=== PATIENT | male | born 1960 | race Caucasian/White ===

== ENCOUNTER 2024-03-06 12:54 | Inpatient (IN) | payer SELFPAY ==
[2024-03-06] VITALS (8 sets, daily range): BP systolic 143–176; BP diastolic 73–89; PULSE 76–93; RESP 16–20; TEMP 36–36.6; O2SAT 95–99; BMI 34.9; BMI 34.8
--- NOTE | 2024-03-06 13:11 | EKG12_ITS ---
Test Reason : SOB Blood Pressure : / mmHG Vent. Rate : 078 BPM Atrial Rate : 078 BPM P-R Int : 176 ms QRS Dur : 088 ms QT Int : 356 ms P-R-T Axes : 063 031 052 degrees QTc Int : 405 ms Normal sinus rhythm with sinus arrhythmia Possible Left atrial enlargement Borderline ECG Confirmed by ISABEL MONTANA, LEONOR ([id number]), editor school photograph NANO WATERMAN ([id number]) on 03/07/2024 9:57:29 AM Referred By: Confirmed By:LEONOR HALL MD
--- NOTE | 2024-03-06 13:15 | NURSING ---
NO OLD EKGS
--- NOTE | 2024-03-06 13:23 | ED.VIS.DYS ---
HPI History of Present Illness Chief Complaint: Shortness of Breath Informant: patient and family Onset/Context/Timing Onset: Month(s) Context: sudden Timing: Intermittent Quality: Positive for Dyspnea on exertion; Negative for Orthopnea or PND Current Severity: Gone Maximum Severity: Moderate Worsened by: Exertion Relieved by: Rest Associated Symptoms cough Chest Pain: Positive for Intermittent Narrative Narrative: 63-year-old male has no primary care physician. No single past medical history. Quit smoking 4 months ago. Patient describes a 2-month history of exertional dyspnea. When he starts walking he gets short of breath and has to stop and rest and then it improves. The other day he took use battery into the car shop and he said just carrying it in and out to his car he was completely out of breath. Denies specific chest pain he says that he has some intermittent sometimes on the left but he gets some throat tightness from time to time. He has no known cardiac history but is never had any workup. His father had heart disease. He denies leg pain or swelling. No hemoptysis. No fever. PE Risk Factors: Negative for Cancer, OCP + Smoking + > 35, Prior DVT or PE, Recent immobilization, Recent surgery or Recent travel Prior similar symptoms: Yes Recent Illness/Hospitalization: No PFSH PFSH Medical History no medical history no medical history Home Medications ?Medication ?Instructions ?Recorded ?Last Taken ?Type cetirizine 10 mg tablet (24Hour 10 mg PO DAILY PRN allergy symptoms 03/06/24 03/05/24 History Allergy) fluticasone propionate 50 1 spray intranasal DAILY PRN 03/06/24 03/05/24 History mcg/actuation nasal allergy symptoms spray,suspension (Allergy Relief (fluticasone)) Allergy/AdvReac Type Severity Reaction Status Date / Time No Known Allergies Allergy Verified 03/06/24 12:57 Surgical History no surgical history no surgical history Social History Smoking Status: Never smoker ROS ROS ED ROS Narrative Exertional dyspnea. Review of Systems ROS Unobtainable: Denies due to encephalopathy Constitutional Constitutional ED: Denies chills or fever(s) Eyes Eyes: Denies blurry vision ENT ENT ED: Denies ear pain or rhinorrhea Cardiovascular Cardiovascular: Reports chest pain; Denies palpitations or racing heartbeat Respiratory/Chest Respiratory/Chest: Reports dyspnea and dyspnea on exertion; Denies cough Gastrointestinal Gastrointestinal: Denies abdominal pain, constipation, diarrhea, melena, nausea or vomiting Genitourinary Genitourinary ED: Denies dysuria or hematuria Musculoskeletal Musculoskeletal: Denies arthralgias or back pain Integumentary Denies abscess or Abrasions Neurologic Neurologic: Denies headache(s) Psychiatric Psychiatric: Denies anxiety or depression Endocrine Endocrinology: Denies cold intolerance Hematologic/Lymphatic Hematologic/Lymphatic: Denies easy bleeding, easy bruising or lymphadenopathy EXAM Physical Exam Narrative Exam Narrative: 63-year-old male. Vital signs stable afebrile. Pulse ox 95% room air no signs hypoxia. H EENT exam unremarkable. Neck nontender no JVD. Lungs clear to auscultation bilaterally. Heart regular rate and rhythm rate about 90 no murmur. Chest wall and ribs nontender. Abdomen soft nontender. Moving all 4 extremities. 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 Normal dorsi plantarflexion. Calves are nontender without edema or cords. Neurologically is awake and alert with no focal motor deficits. Const Vital Signs: 03/06/24 12:54 03/06/24 12:55 03/06/24 13:13 Temperature 97.2 F L Temperature Source Temporal Pulse Rate 93 Respiratory Rate 16 Respiratory Effort Short of Breath Respiratory Depth Shallow Respiratory Pattern Normal Blood Pressure 176/84 H Blood Pressure Mean 114 Pulse Ox 95 Oxygen Delivery Method Room Air Room Air Room Air 03/06/24 13:54 03/06/24 14:00 Temperature 97.8 F Temperature Source Temporal Pulse Rate 80 76 Respiratory Rate 20 H 18 Respiratory Effort Respiratory Depth Respiratory Pattern Blood Pressure 156/74 H 147/83 H Blood Pressure Mean 101 104 Pulse Ox 96 96 Oxygen Delivery Method Room Air Positive well nourished and well developed; Negative for cachectic, contractures or unkempt General Appearance ED: well developed and NAD; Negative for unkempt, cachectic, contractures or pallor Nutritional Appearance: Negative for cachectic HEENT Reports moist mucous membranes atraumatic; Negative for trauma or tenderness Eyes PERRL and EOMs intact bilaterally General Eye ED: Negative for pale conjunctiva or scleral icterus Neck no lymphadenopathy, supple and no JVD General: Negative for tenderness Lymph Lymphatic: Negative for other Chest Wall Chest: Negative for other Resp normal respiratory effort and clear to auscultation bilaterally Effort and Inspection: Negative for pain with movement Auscultation: Negative for rales, rhonchi or wheezes Cardio regular rate, regular rhythm, S1 normal heart sound, S2 normal heart sound and no murmurs Rate: Negative for bradycardia or tachycardic Rhythm: Negative for abnormal rhythm GI non-tender, non-distended and no masses Inspection: Negative for other Auscultation: normoactive bowel sounds Palpation: soft; Negative for tender, guarding or rebound tenderness present Back/Spine no CVA tenderness and normal to inspection General Back: Negative for CVA tenderness or tenderness Extremity Negative for normal to inspection General Extremety ED: Negative for edema or tenderness General Extremity: Negative for edema Neuro oriented x3 and CN's II-XII intact bilaterally Sensorium / Orientation: alert, oriented to person, oriented to place and oriented to time; Negative for orientation impaired, confused, lethargic or stuporous Speech: speech normal Motor Exam: strength 5/5 throughout Psych mental status grossly normal Appearance: Negative for unkempt Attitude: No agitated Mood & Affect: Negative for depressed, anxious or tearful Thought Process: normal thought process Skin no wounds and skin turgor normal General Skin Exam: Negative for jaundice or pallor Lesions: no lesions Rashes: no rashes MDM MDM MDM Narrative Medical decision making narrative: 63-year-old male 2-month history of exertional dyspnea very concerning for coronary disease. Exam otherwise unremarkable. Cardiac workup and I have already discussed with patient and family admission for further cardiac testing. Repeat exam unchanged. Given the patient's history of exertional dyspnea I do have significant concern this may be cardiac. His troponins elevated at 138. I spoke at length both he and his family went over his test results. They are comfortable and he is willing to be admitted for further cardiac evaluation. I spoke to the hospitalist Dr. Villarreal and he will admit the patient to the PCU. History & Record Review Discussion w/independent historian: Patient and Family Additional record(s) reviewed:: No prior records Lab Data Attestation: I reviewed the patient's lab results. Lab results narrative: CBC normal. White count of 5. H&H 14 and 44. Platelets 218. Electrolytes unremarkable gap 4. Normal BUN and creatinine. Glucose 111. Troponin is elevated at 138. Labs: Laboratory Results - last 24 hr 03/06/24 13:08 WBC 5.8 RBC 4.55 L Hgb 14.5 Hct 44.8 MCV 98.5 H MCH 31.9 MCHC 32.4 RDW Std Deviation 44.9 H RDW Coeff of Uriah 12.4 Plt Count 218 MPV 9.4 Immature Gran % (Auto) 0.200 Neut % (Auto) 61.1 Lymph % (Auto) 24.8 Casey % (Auto) 9.7 Eos % (Auto) 3.3 Baso % (Auto) 0.9 Absolute Neuts (auto) 3.5 Absolute Lymphs (auto) 1.43 Nucleated RBC % 0 Sodium 137 Potassium 4.0 Chloride 107 Carbon Dioxide 26.0 Anion Gap 4 L BUN 12 Creatinine 0.84 Estim Creat Clear Calc 122.25 Est GFR (MDRD) Af Amer 118 Est GFR (MDRD) Non-Af 97 BUN/Creatinine Ratio 14.2 Glucose 111 H Calcium 8.9 Troponin I High Sens 138 H* Radiography Chest X-Ray - ED: 1 View, Read by ED Physician, Heart, Lungs, Mediastinum, Bony Structures, No Acute Disease and Chronic Changes Diagnostic Testing: Clinical Impression(s) from Imaging Studies Chest X-Ray 03/06/24 13:35 IMPRESSION: Findings suggest some mild scarring at the lung bases. Electronically Signed: Mathew Vasquez MD at 14:06 EDT , Chest x-ray portable, single view interpreted by myself and radiologist shows normal cardiac silhouette. Chronic changes on his lung kelley. History of smoker. Rhythm Strip Rhythm Strip: Sinus Rhythm Rate: 78 Ectopy: None EKG Initial EKG: Attestation: I personally reviewed and interpreted this EKG as follows: Interpretation: Sinus Rhythm and No Acute Injury Pattern Comments: Normal sinus rhythm rate of 78 no acute signs of PR or ischemia. No old EKG available. Prior EKG tracings: not available for review Prior: No Prior Discharge Plan Triage Chief Complaint: Shortness of Breath ED Provider: Antolin Gaffney Dx/Rx/DC Orders Clinical Impression: Exertional dyspnea, Elevated troponin Prescriptions: No Action fluticasone propionate [Allergy Relief (fluticasone)] 50 mcg/actuation spray,suspension 1 spray intranasal DAILY PRN (Reason: allergy symptoms) Rx Instructions: administer into each nostril cetirizine [24Hour Allergy] 10 mg tablet 10 mg PO DAILY PRN (Reason: allergy symptoms) Primary Care Provider: Care Physician,No Primary Referrals: Care Physician,No Primary [Primary Care Provider] - Print Language: Maori Disposition Disposition: Acute Care Hospital [facility]
[2024-03-06 13:28] LABS: Absolute Lymphocyte Count 1.43 X10^3/uL (0.83-4.51); Absolute Neutrophil Count 3.5 X10^3/uL (2.0-7.7); Basophil# 0.05 X10^3/uL; Basophil% 0.9 % (0-1); Eosinophil# 0.19 X10^3/uL; Eosinophils% 3.3 % (0-5); Hematocrit 44.8 % (40-54); Hemoglobin 14.5 g/dL (13.0-16.5); Lymphocyte # 1.43 X10^3/ul (0.83-4.51); Lymphocyte % 24.8 % (19-41); Mean Corp Hgb Conc 32.4 g/dL (32-36); Mean Corpuscular Hgb 31.9 pg (27.0-32.0); Mean Corpuscular Volume 98.5 fL (80-94); Mean Platelet Vol. 9.4 fl (6.2-12.0); Monocyte# 0.56 X10^3/uL; Monocyte% 9.7 % (0-10); NRBC Flagged by Analyzer 0 % (0-5); Neutrophil # 3.52 X10^3/uL (2.7-7.7); Neutrophil % 61.1 % (47-70); Platelet Count 218 K/mm3 (150-450); RBC Distribution Width CV 12.4 % (11.6-14.6); RBC Distribution Width SD 44.9 fl (35.1-43.9); Red Blood Count 4.55 M/mm3 (4.6-6.2); White Blood Count 5.8 K/mm3 (4.4-11.0)
--- NOTE | 2024-03-06 13:35 | RAD_ITS ---
STUDY: X-RAY CHEST REASON FOR EXAM: Male, 63 years old. Chest pain and shortness of breath. TECHNIQUE: PA and lateral views of the chest. COMPARISON: None. FINDINGS: EKG electrodes are seen. Elevation of the right hemidiaphragm. Mild degree of increased linear markings at the lung bases suggests mild linear scarring. There is no demonstrated pleural abnormality. Normal size heart. Normal mediastinum and arnaud. Normal visualized pulmonary arteries. Normal visualized aortic arch and descending thoracic aorta. Normal visualized thoracic spine. Normal visualized ribs, clavicles, and shoulders. There is no demonstrated abnormality of the visualized soft tissue structures of the upper abdomen. RAD/Chest PA and Lateral IMPRESSION: Findings suggest some mild scarring at the lung bases. Electronically Signed: Mathew Vasquez MD at 14:06 EDT ,
[2024-03-06 14:27] LABS: Anion Gap 4 (5-15); BUN 12 mg/dL (7-18); BUN/Creat Ratio 14.2 RATIO (10-20); Calcium,Total 8.9 mg/dL (8.5-10.1); Chloride 107 mmol/L (98-107); Creatinine, Serum 0.84 mg/dL (0.70-1.30); EST Glomerular Filtration Rate 97 mL/min (>60); Est Glom Filt Rate - Afr Amer 118 mL/min (>60); Estimated Creatinine Clearance 122.25 ml/min; Glucose 111 mg/dL (74-106); Sodium Level 137 mmol/L (136-145); Troponin-I HS 138 pg/mL (3.0-78.0)
--- NOTE | 2024-03-06 15:00 | NURSING ---
PCU MATT EXERTIONAL DYSPNEA, ELEVATED TROP
--- NOTE | 2024-03-06 15:18 | ECHOD_ITS ---
Reason For Study: NSTEMI Procedure This was a 2D Doppler, Color Flow transthoracic echocardiogram. The study was technically difficult. Exam performed portable in patient room. Left Ventricle Normal LV size. The estimated ejection fraction is 55 %. No evidence for diastolic dysfunction. No regional wall motion abnormalities noted. Right Ventricle Normal RV size. Normal systolic function. Atria The left and right atria are normal. No doppler evidence for ASD. Mitral Valve There is no mitral valve stenosis. Trivial mitral valve insufficiency. Tricuspid Valve There is no tricuspid stenosis. Unable to estimate RV systolic pressure due to inadequate jet, pulmonary artery pressure probably normal. Aortic Valve Aortic sclerosis, no stenosis. There is no aortic stenosis. Trivial aortic valve insufficiency. Pulmonic Valve There is no pulmonic valvular stenosis. No pulmonic valve insufficiency. Great Vessels Normal aortic root. Pericardium/Pleural No pericardial effusion. MMode/2D Measurements & Calculations LVIDd: 5.0 cm IVSd: 1.6 cm LVOT diam: 2.1 cm LVIDs: 2.7 cm LVPWd: 1.1 cm LVOT area: 3.4 cm2 RVDd: 3.7 cm FS: 45.6 % Ao root diam: 3.5 cm LAV(MOD-bp): 58.8 ml LVAd ap4: 34.5 cm2 LAV(MOD-bp) Indexed: 24.3 ml/m2 LVLd ap4: 8.8 cm LAV(MOD-sp2): 73.7 ml EDV(MOD-sp4): 110.9 ml LAV(MOD-sp4): 46.6 ml EDV(sp4-el): 115.1 ml LVAs ap4: 18.8 cm2 LVLs ap4: 7.5 cm ESV(MOD-sp4): 40.0 ml ESV(sp4-el): 39.9 ml EF(MOD-sp4): 64.0 % EF(sp4-el): 65.3 % LVAd ap2: 36.7 cm2 SV(MOD-sp4): 70.9 ml SV(MOD-sp2): 77.2 ml LVLd ap2: 9.0 cm EDV(MOD-sp2): 125.5 ml EDV(sp2-el): 126.7 ml LVAs ap2: 20.8 cm2 LVLs ap2: 7.7 cm ESV(MOD-sp2): 48.3 ml ESV(sp2-el): 47.8 ml EF(MOD-sp2): 61.5 % SV(sp4-el): 75.2 ml LA dimension(2D): 3.7 cm LA A4 area: 17.5 cm2 RA A4 area: 10.7 cm2 TAPSE: 2.3 cm Time Measurements MV dec time: 0.21 sec Doppler Measurements & Calculations MV E max silver: 72.7 cm/sec Lat Peak E' Silver: 14.5 cm/sec Med Peak E' Silver: 9.2 cm/sec MV A max silver: 62.3 cm/sec E/E' lat: 5.0 E/E' med: 7.9 MV E/A: 1.2 Ao V2 max: 166.6 cm/sec AI max silver: 449.2 cm/sec MV dec slope: 349.4 cm/sec2 Ao max P.1 mmHg AI max P.7 mmHg Ao V2 mean: 114.9 cm/sec Ao mean P.8 mmHg AI dec slope: 311.9 cm/sec2 Ao V2 VTI: 33.8 cm AI P1/2t: 421.7 msec AV (velocity ratio): 0.71 GARCIA(I,D): 2.4 cm2 GARCIA(V,D): 2.2 cm2 LV V1 max: 104.4 cm/sec SV(LVOT): 82.3 ml PA V2 max: 71.1 cm/sec LV V1 max P.4 mmHg PA max PG (full): 0.21 mmHg LV V1 mean P.3 mmHg LV V1 mean: 71.5 cm/sec LV V1 VTI: 23.9 cm ECHO/Echo Complete Interpretation Summary The estimated ejection fraction is 55 %. No evidence for diastolic dysfunction. Trivial mitral valve insufficiency. Trivial aortic valve insufficiency. Ordering Physician: Rudolph Villarreal Referring Physician: N/A Performed By: Lubna Brice RDCS and Student
--- NOTE | 2024-03-06 15:20 | EKG12_ITS ---
Test Reason : Blood Pressure : / mmHG Vent. Rate : 072 BPM Atrial Rate : 072 BPM P-R Int : 174 ms QRS Dur : 090 ms QT Int : 376 ms P-R-T Axes : 044 031 053 degrees QTc Int : 411 ms Normal sinus rhythm Normal ECG When compared with ECG of 06-MAR-2024 13:28, No significant change was found Confirmed by Ryan Diego ([id number]), supervising film or videotape editor EVIN BALBUENA ([id number]) on 03/12/2024 6:13:52 AM Referred By: MATT Confirmed By:Ryan Diego
--- NOTE | 2024-03-06 15:26 | HP.PCM.HOS_ITS ---
HPI - General General Date of Admission: 03/06/24 Date of Service: 03/06/24 Chief Complaint: Exertional dyspnea for about 10 days HPI Narrative MIRI ROMERO, is a 63 M who has not seen any doctor for 30 years came to ER for exertional dyspnea which she noticed about 10 days ago. Patient stated that he was carrying car battery into the car shop and he felt very short of breath. Normally does not feel short of breath on walking on playground but while carrying weight he gets easily winded and out of breath. This has been going for about 2 months. Patient also has had sometimes he feel mild chest pressure about 1-3/10 intensity left-sided, localized but is not concerned it is not related with the activity. He also has chronic throat tightness which is chronic and intermittent. On home medications patient is on cetirizine and fluticasone nasal spray as needed for allergy symptoms. Patient does not know any his past medical history has not seen doctor for many years. His blood pressure was elevated in ED 176/84, heart rate 93/min. No hypoxia or tachypnea. Patient has history of smoking for about 18 years which she quit 4 months ago. He was smoking 1 pack in 1 week. Drinks alcohol regularly about 3-4 beers every day. Denies substance use. Family history: His father has history of coronary artery disease and at the age of 53 because of heart attack. He said he also had metallic valve probably prosthetic mechanical valve. First troponin elevated. Twelve-lead EKG, chest x-ray and labs reviewed and discussed assessment and plan. [facility] Medical History no medical history Home Medications ?Medication ?Instructions ?Recorded ?Last Taken ?Type cetirizine 10 mg tablet (24Hour 10 mg PO DAILY PRN allergy symptoms 03/06/24 03/05/24 History Allergy) fluticasone propionate 50 1 spray intranasal DAILY PRN 03/06/24 03/05/24 History mcg/actuation nasal allergy symptoms spray,suspension (Allergy Relief (fluticasone)) Allergy/AdvReac Type Severity Reaction Status Date / Time No Known Allergies Allergy Verified 03/06/24 12:57 Surgical History no surgical history Social History Smoking Status: Former smoker ROS ROS Narrative Constitutional: Reports fatigue and weakness. No fever. HEENT: Reports systems reviewed and no addt'l complaints, except as documented Respiratory/Chest: As described in HPI. Might have some allergic symptoms/rhinitis CVS: As described in HPI Gastrointestinal: Denies coffee ground emesis, hematemesis or vomiting. No abdominal pain Genitourinary: Denies burning urination or new urinary tract symptoms Musculoskeletal: No leg swelling denies acute joint pain or limited range of motion. No acute injury Neurologic: Denies seizure-like symptoms. skin: No ulcer. No rash Endocrinology: Reports systems reviewed and no addt'l complaints, except as documented Hematologic/Lymphatic: Reports systems reviewed and no addt'l complaints, except as documented Rest 14 ROS are negative except as mentioned in HPI Vital Signs Vital Signs Vital Signs: 03/06/24 12:54 03/06/24 12:55 03/06/24 13:13 Temperature 97.2 F L Temperature Source Temporal Pulse Rate 93 Respiratory Rate 16 Respiratory Effort Short of Breath Respiratory Depth Shallow Respiratory Pattern Normal Blood Pressure 176/84 H Blood Pressure Mean 114 Pulse Ox 95 Oxygen Delivery Method Room Air Room Air Room Air 03/06/24 13:54 03/06/24 14:00 03/06/24 14:57 Temperature 97.8 F 97.8 F Temperature Source Temporal Pulse Rate 80 76 85 Respiratory Rate 20 H 18 16 Respiratory Effort Respiratory Depth Respiratory Pattern Blood Pressure 156/74 H 147/83 H 143/89 H Blood Pressure Mean 101 104 107 Pulse Ox 96 96 95 Oxygen Delivery Method Room Air Weight Weight: 265 lb Body Mass Index (BMI) 34.9 Physical Exam Narrative General: Alert, Oriented x3, Cooperative. Obesity grade 3. BMI 35.0 kg/m? HEENT: Atraumatic, PERRLA, EOMI, Normocephalic Oral: Oral mucosa moist no Gingival or Mucosal Lesions/ Ulcerations Neck: Supple, No JVD, Negative Carotid Bruits Chest wall/Lungs: Air entry diminished in bilateral lung bases. No crepitation/rhonchi Cardiovascular: Regular rate, Regular Rhythm, Normal S1, Normal S2, soft systolic murmur LLSB Abdomen: Bowel Sounds Present, Soft, Non Tender, Non-Distended : No dysuria. No renal angle tenderness. No suprapubic tenderness. Extremities: No edema, Capillary Refill Less than 3 Seconds Skin: No rashes, No breakdown Musculoskeletal: No Tenderness to Palpation of Joints or Extremities Neurological: Cranial nerves II-XII grossly intact, DTR 2+/4. No acute focal neurological deficit. Psych/Mental Status: Normal Affect, Appropriate. Results Lab / Micro Data 03/06/24 13:08 03/06/24 13:08 Labs: Laboratory Results - last 24 hr 03/06/24 13:08: WBC 5.8, RBC 4.55 L, Hgb 14.5, Hct 44.8, MCV 98.5 H, MCH 31.9, MCHC 32.4, RDW Std Deviation 44.9 H, RDW Coeff of Uriah 12.4, Plt Count 218, MPV 9.4, Immature Gran % (Auto) 0.200, Neut % (Auto) 61.1, Lymph % (Auto) 24.8, Perkins % (Auto) 9.7, Eos % (Auto) 3.3, Baso % (Auto) 0.9, Absolute Neuts (auto) 3.5, Absolute Lymphs (auto) 1.43, Nucleated RBC % 0, Sodium 137, Potassium 4.0, Chloride 107, Carbon Dioxide 26.0, Anion Gap 4 L, BUN 12, Creatinine 0.84, Estim Creat Clear Calc 122.25, Est GFR (MDRD) Af Amer 118, Est GFR (MDRD) Non-Af 97, BUN/Creatinine Ratio 14.2, Glucose 111 H, Calcium 8.9, Troponin I High Sens 138 H* Rhythm Strip Rhythm Strip: Sinus Rhythm Rate: 78 Ectopy: None Imaging Radiology Impression Chest X-Ray 03/06/24 13:35 IMPRESSION: Findings suggest some mild scarring at the lung bases. Electronically Signed: Mathew Vasquez MD at 14:06 EDT , Assessment & Plan Assessment/Plan (1) NSTEMI, initial episode of care: PLAN: Plan This is 63-year-old gentleman came to ER for exertional dyspnea and clinical finding suggestive of non-STEMI 1. Exertional dyspnea most likely due to non-STEMI: Patient is being admitted in PCU. Twelve-lead EKG individually reviewed and shows normal sinus rhythm, sinus arrhythmia at 78 bpm, QTc [address]-T changes. No prior EKG to compare. Chest x-ray initially reviewed and shows mild atelectasis at lung bases but no acute findings. First troponin 138. Heart score 6. GIOVANNY risk score 3. Cycle cardiac enzymes and EKG as per ACS protocol. Aspirin 324 mg 1 dose ordered and then 81 mg from tomorrow AM. Enoxaparin 1 mg/kg body weight every 12 hourly, first dose now. Hold the morning dose prior to heart cath. Cardiology consulted and plan for cardiac cath tomorrow AM. Started on metoprolol succinate and lisinopril. Fasting profile and TSH tomorrow AM. 2D echo ordered for tomorrow AM 2. High blood pressure possible undiagnosed hypertension: Started on metoprolol and lisinopril as mentioned above. 3. Hypoglycemia, glucose 111 on BMP: Suspicion of prediabetes. A1c ordered for tomorrow 4. Morbid obesity: BMI 35.0 kg/m?. DVT prophylaxis: On therapeutic dose of Lovenox. Living will/advanced directive/end of life care: Patient does not have living will or advanced directive. He does not have designated power of trust and estates attorney for healthcare. He is accompanied by his son and daughter in ED. After discussion of benefits/risks procedures involved with full code, DNR CC arrest and DNR CC, the patient and his family opted for full code. Patient does want artificial life support including intubation, tube feed, ventilator and/chest compression, central venous catheter, vasopressor and DC shock if needed Total time spent in [id number] encounter in discussion of advanced directive 17 minutes. Laboratory Results 03/06/24 13:08: WBC 5.8, RBC 4.55 L, Hgb 14.5, Hct 44.8, MCV 98.5 H, MCH 31.9, MCHC 32.4, RDW Std Deviation 44.9 H, RDW Coeff of Uriah 12.4, Plt Count 218, MPV 9.4, Immature Gran % (Auto) 0.200, Neut % (Auto) 61.1, Lymph % (Auto) 24.8, Perkins % (Auto) 9.7, Eos % (Auto) 3.3, Baso % (Auto) 0.9, Absolute Neuts (auto) 3.5, Absolute Lymphs (auto) 1.43, Nucleated RBC % 0, Sodium 137, Potassium 4.0, Chloride 107, Carbon Dioxide 26.0, Anion Gap 4 L, BUN 12, Creatinine 0.84, Estim Creat Clear Calc 122.25, Est GFR (MDRD) Af Amer 118, Est GFR (MDRD) Non-Af 97, BUN/Creatinine Ratio 14.2, Glucose 111 H, Calcium 8.9, Troponin I High Sens 138 H* Clinical Impression(s) from Imaging Studies Chest X-Ray 03/06/24 13:35 IMPRESSION: Findings suggest some mild scarring at the lung bases. Electronically Signed: Mathew Vasquez MD at 14:06 EDT , Charges/Coding Visit Charges Inpatient E&M: 56466 Init Hosp L3 Procedures Hospitalists Procedures: 95263 Advncd Care Plan 30 Min
[2024-03-06] MEDS: Metoprolol(XL)Succ 25 MG Tablet PO (16:14)
[2024-03-06] MEDS: Aspirin 81 MG TAB.CHEW 324 MG PO (16:14)
[2024-03-06] MEDS: 0.9% Normal Saline (1000mL) 1,000 ML 75 ML IV (16:14)
[2024-03-06] MEDS: Enoxaparin 120 MG/0.8 ML Syringe SC (16:14)
[2024-03-06] MEDS: Lisinopril 5 MG Tablet PO (16:14)
[2024-03-06] MEDS: 0.9% Saline Lock 10 ML Syringe IV (16:16)
[2024-03-06 17:03] LABS: AST(SGOT) 24 U/L (15-37); Alanine Aminotransfer ALT/SGPT 26 U/L (16-61); Albumin, Serum 3.5 g/dL (3.2-5.0); Alkaline Phosphatase 71 U/L (45-117); Bilirubin, Direct 0.23 mg/dL (0.00-0.30); Globulin 4.1 g/dL (2.2-4.2); Magnesium 2.2 mg/dL (1.6-2.6); Protein, Total 7.6 g/dL (6.4-8.2); Troponin-I HS 136 pg/mL (3.0-78.0)
--- NOTE | 2024-03-06 17:42 | CON.PCM.CA_ITS ---
Assessment & Plan Assessment/Plan (1) NSTEMI, initial episode of care: PLAN: He does have evidence of abnormal cardiac enzymes. However the pattern does not suggest acute coronary syndrome. It is possible that this is an anginal equivalent. Based on his response and access to the healthcare system it may be prudent to proceed with definitive evaluation to exclude obstructive coronary disease and depending on the findings further recommendations will be made. I have explained the above to him he understands and agrees to proceed with a left heart catheterization in a.m. Further recommendations will depend on the results of the above. (2) Exertional dyspnea: PLAN: He does have evidence of exertional dyspnea. As noted above this could be an anginal equivalent. We would obtain an echocardiogram to assess his ventricular function. I will also like to obtain a natruretic peptide level. Further recommendations will depend on the results of the above results. HPI Consult Data Date of Consult: 03/06/24 HPI Narrative HPI Narrative: MIRI ROMERO, is a 63 M who presents to the emergency room with shortness of breath with minimal exertion. He says that he has not visited a primary care physician in over 30 years but he felt that he was getting more short of breath. He denied any dizziness or diaphoresis near syncope or syncope he denied any chest pains per se. In the emergency room he was evaluated his EKG demonstrated sinus rhythm with no acute changes cardiac enzymes were obtained which were noted to be abnormal he was admitted to the progressive care unit for further evaluation and management. Currently he seems to be doing well. [facility] Medical History no medical history Home Medications ?Medication ?Instructions ?Recorded ?Last Taken ?Type cetirizine 10 mg tablet (24Hour 10 mg PO DAILY PRN allergy symptoms 03/06/24 03/05/24 History Allergy) fluticasone propionate 50 1 spray intranasal DAILY PRN 03/06/24 03/05/24 History mcg/actuation nasal allergy symptoms spray,suspension (Allergy Relief (fluticasone)) Allergy/AdvReac Type Severity Reaction Status Date / Time No Known Allergies Allergy Verified 03/06/24 12:57 Surgical History no surgical history Social History Smoking Status: Former smoker ROS Constitutional Constitutional: Denies fever(s) or weight loss Eyes Eyes: Reports systems reviewed and no addt'l complaints, except as documented ENT HEENT: Reports systems reviewed and no addt'l complaints, except as documented Cardiovascular Cardiovascular: Denies chest pain at rest, chest pain with activity, dyspnea at rest, dyspnea on exertion, edema, palpitations or paroxysmal nocturnal dyspnea Respiratory/Chest Respiratory/Chest: Reports dyspnea on exertion, shortness of breath at rest and shortness of breath with exertion; Denies productive cough Gastrointestinal Gastrointestinal: Denies change in bowel habits, nausea, vomiting or weight changes Genitourinary Genitourinary: Denies difficulty urinating Musculoskeletal Musculoskeletal: Denies joint stiffness or muscle weakness Integumentary Integumentary: Denies lesions Neurologic Neurologic: Denies dizziness or syncope Psychiatric Psychiatric: Denies anxiety Endocrine Endocrinology: Denies excessive sweating or fatigue Hematologic/Lymphatic Hematologic/Lymphatic: Denies anemia Allergic/Immunologic Allergic/Immunologic: Denies seasonal rhinorrhea Physical Exam Const alert, oriented x3 and no apparent distress General Appearance: cooperative HEENT hearing grossly normal bilaterally Head and Scalp: atraumatic Eyes EOMs intact bilaterally Neck General: normal visual inspection Chest inspection of chest normal and palpation of chest normal Resp normal respiratory effort Auscultation: clear to auscultation bilaterally Cardio regular rate, regular rhythm, S1 normal heart sound and S2 normal heart sound Jugular Venous Distention: JVD GI normal to inspection, nondistended, normoactive bowel sounds Extremity normal capillary refill and no pedal edema Peripheral Pulses: Yes pulses 2+ throughout and femoral pulses present Skin no rashes or lesions noted Neuro oriented x3 and CN's II-XII intact bilaterally Psych Appearance: grossly normal and appropriate Risk Stratification Risk Stratification Applicable: Yes Age >/= 65: No >/= 3 CAD Risk Factors (HTN, HLD, DM, family hx of CAD, or current smoker): No Aspirin Use in the Past 7 Days: No Severe Angina (>/= episodes in 24 hours): No EKG ST Changes >/= 0.5mm: No Positive Cardiac Marker: Yes GIOVANNY Risk Stratification Score: 1 GIOVANNY % Risk: 5% Risk Objective Data Vital Signs: Vital Signs Temp Pulse Resp BP Pulse Ox O2 Del Method 97.7 F L 76 18 159/76 H 99 Room Air 03/06/24 15:40 03/06/24 16:14 03/06/24 15:40 03/06/24 15:40 03/06/24 15:40 03/06/24 15:50 Oxygen Delivery Method Room Air Weight: 264 lb 1.82 oz Body Mass Index (BMI) 34.8 Lab / Micro Data 03/06/24 13:08 03/06/24 13:08 Labs: Laboratory Results - last 24 hr 03/06/24 13:08: WBC 5.8, RBC 4.55 L, Hgb 14.5, Hct 44.8, MCV 98.5 H, MCH 31.9, MCHC 32.4, RDW Std Deviation 44.9 H, RDW Coeff of Uriah 12.4, Plt Count 218, MPV 9.4, Immature Gran % (Auto) 0.200, Neut % (Auto) 61.1, Lymph % (Auto) 24.8, [place] % (Auto) 9.7, Eos % (Auto) 3.3, Baso % (Auto) 0.9, Absolute Neuts (auto) 3.5, Absolute Lymphs (auto) 1.43, Nucleated RBC % 0, Sodium 137, Potassium 4.0, Chloride 107, Carbon Dioxide 26.0, Anion Gap 4 L, BUN 12, Creatinine 0.84, Estim Creat Clear Calc 122.25, Est GFR (MDRD) Af Amer 118, Est GFR (MDRD) Non-Af 97, BUN/Creatinine Ratio 14.2, Glucose 111 H, Calcium 8.9, Troponin I High Sens 138 H* 03/06/24 15:49: Magnesium 2.2, Total Bilirubin 0.90, Direct Bilirubin 0.23, AST 24, ALT 26, Alkaline Phosphatase 71, Troponin I High Sens 136 H*, Total Protein 7.6, Albumin 3.5, Globulin 4.1 Rhythm Strip Rhythm Strip: Sinus Rhythm Rate: 78 Ectopy: None Cardiology Labs/Tests 03/06/24 13:08: WBC 5.8, RBC 4.55 L, Hgb 14.5, Hct 44.8, MCV 98.5 H, MCH 31.9, MCHC 32.4, Plt Count 218, MPV 9.4, Immature Gran % (Auto) 0.200, Neut % (Auto) 61.1, Lymph % (Auto) 24.8, [place] % (Auto) 9.7, Eos % (Auto) 3.3, Baso % (Auto) 0.9, Absolute Neuts (auto) 3.5, Nucleated RBC % 0, Sodium 137, Potassium 4.0, Chloride 107, Carbon Dioxide 26.0, Anion Gap 4 L, BUN 12, Creatinine 0.84, Est GFR (MDRD) Af Amer 118, Est GFR (MDRD) Non-Af 97, BUN/Creatinine Ratio 14.2, G lucose 111 H, Calcium 8.9 03/06/24 15:49: Magnesium 2.2, Total Bilirubin 0.90, Direct Bilirubin 0.23 Rhythm: EKG: ECHO: Stress Test: Cardiac Cath: PCI: CT Surgery: Holter monitor: EPS: PPM: CXR: Chest CT Scan: Radiography Diagnostic Testing: Radiology Impression Chest X-Ray 03/06/24 13:35 IMPRESSION: Findings suggest some mild scarring at the lung bases. Electronically Signed: Mathew Vasquez MD at 14:06 EDT ,
[2024-03-06 20:30] LABS: Troponin-I HS 128 pg/mL (3.0-78.0)
[2024-03-06] MEDS: Atorvastatin Calcium 40 MG Tablet PO (21:33)
--- NOTE | 2024-03-06 22:30 | CT_ITS ---
EXAM: CT ABDOMEN AND PELVIS WITHOUT INTRAVENOUS CONTRAST CLINICAL INDICATION: scrotal mass x 5 years TECHNIQUE: Helically acquired images were obtained of the abdomen and pelvis without intravenous contrast. This CT exam was performed using one or more of the following dose reduction techniques: automated exposure control, adjustment of the mA and/or kV according to patient size, and/or use of iterative reconstruction technique. COMPARISON: No relevant prior studies available. FINDINGS: LOWER THORAX: Predominantly posterior dependent airspace disease bilaterally is likely atelectasis rather than pneumonia. Small pulmonary cysts/blebs are identified. No cardiomegaly. No significant pericardial effusion. ABDOMEN: LIVER: No significant abnormality. Homogeneous. GALLBLADDER AND BILE DUCTS: No significant abnormality. No calcified gallstones. No gallbladder distention or wall edema. No intra- or extrahepatic biliary ductal dilation. PANCREAS: No significant abnormality. No focal cystic mass. SPLEEN: No significant abnormality. Normal size without focal cystic or solid mass. ADRENALS: No significant abnormality. No nodules. KIDNEYS AND URETERS: Left-sided peripelvic renal cysts are present for which no follow-up is indicated. No hydronephrosis. STOMACH AND BOWEL: Sigmoid colon containing large left inguinal hernia extending into the scrotum without evidence of incarceration or strangulation. Areas of fat necrosis within the mesentery contained in the left inguinal hernia. Colonic diverticulosis without evidence of acute diverticulitis. No stomach or bowel distention. PELVIS: APPENDIX: No evidence of acute appendicitis. BLADDER: No significant abnormality. REPRODUCTIVE: Normal as visualized. No mass. ABDOMEN and PELVIS: INTRAPERITONEAL SPACE: No significant abnormality. No ascites or other fluid collection. No free air. BONES/JOINTS: Degenerative changes in the spine, pelvis, and hips. No suspicious lytic or blastic abnormality. SOFT TISSUES: Fat-containing umbilical hernia in addition to the left inguinal hernia. Areas of fat necrosis within the mesentery contained in the left inguinal hernia. VASCULATURE: No significant abnormality. Abdominal aorta is non-dilated. LYMPH NODES: No significant abnormality. No enlarged lymph nodes. CT/Abdomen/Pelvis without Cont IMPRESSION: 1. Sigmoid colon containing large left inguinal hernia extending into the scrotum without evidence of incarceration or strangulation. 2. Predominantly posterior dependent airspace disease bilaterally is likely atelectasis rather than pneumonia. Small pulmonary cysts/blebs are identified. 3. Colonic diverticulosis without evidence of acute diverticulitis. Electronically Signed: Nadeem Mckeon DO at 23:40 EDT ,
[2024-03-07] VITALS (11 sets, daily range): BP systolic 138–160; BP diastolic 63–92; PULSE 63–81; RESP 18–19; TEMP 35.9–36.6; O2SAT 95–97; BMI 35.1
--- NOTE | 2024-03-07 05:55 | EKG12_ITS ---
Test Reason : AM EKG Blood Pressure : / mmHG Vent. Rate : 070 BPM Atrial Rate : 070 BPM P-R Int : 180 ms QRS Dur : 090 ms QT Int : 390 ms P-R-T Axes : 058 057 078 degrees QTc Int : 421 ms Normal sinus rhythm Normal ECG When compared with ECG of 06-MAR-2024 13:28, MANUAL COMPARISON REQUIRED, DATA IS UNCONFIRMED Confirmed by ISABEL MONTANA, LEONOR ([id number]), scientific publications editor NANO WATERMAN ([id number]) on 03/07/2024 1:22:07 PM Referred By: MATT Confirmed By:LEONOR HALL MD
[2024-03-07] MEDS: Aspirin E.C. 81 MG Tablet PO (06:31)
[2024-03-07] MEDS: Metoprolol(XL)Succ 25 MG Tablet PO (06:31)
[2024-03-07 06:44] LABS: Absolute Lymphocyte Count 1.09 X10^3/uL (0.83-4.51); Absolute Neutrophil Count 3.2 X10^3/uL (2.0-7.7); Basophil# 0.03 X10^3/uL; Basophil% 0.6 % (0-1); Eosinophil# 0.21 X10^3/uL; Eosinophils% 4.2 % (0-5); Hematocrit 42.4 % (40-54); Hemoglobin 13.9 g/dL (13.0-16.5); Lymphocyte # 1.09 X10^3/ul (0.83-4.51); Lymphocyte % 21.6 % (19-41); Mean Corp Hgb Conc 32.8 g/dL (32-36); Mean Corpuscular Hgb 32.6 pg (27.0-32.0); Mean Corpuscular Volume 99.3 fL (80-94); Mean Platelet Vol. 9.3 fl (6.2-12.0); Monocyte# 0.49 X10^3/uL; Monocyte% 9.7 % (0-10); NRBC Flagged by Analyzer 0 % (0-5); Neutrophil # 3.21 X10^3/uL (2.7-7.7); Neutrophil % 63.5 % (47-70); Platelet Count 202 K/mm3 (150-450); RBC Distribution Width CV 12.3 % (11.6-14.6); Red Blood Count 4.27 M/mm3 (4.6-6.2); White Blood Count 5.1 K/mm3 (4.4-11.0)
[2024-03-07 07:08] LABS: Anion Gap 5 (5-15); BUN 12 mg/dL (7-18); BUN/Creat Ratio 14.8 RATIO (10-20); Calcium,Total 8.5 mg/dL (8.5-10.1); Chloride 108 mmol/L (98-107); Creatinine, Serum 0.81 mg/dL (0.70-1.30); EST Glomerular Filtration Rate 102 mL/min (>60); Est Glom Filt Rate - Afr Amer 123 mL/min (>60); Estimated Creatinine Clearance 127.04 ml/min; Glucose 119 mg/dL (74-106); Potassium 4.4 mmol/L (3.5-5.1); Sodium Level 138 mmol/L (136-145)
--- NOTE | 2024-03-07 08:50 | PCM.PN.CARD ---
Subjective Subjective Patient seen and evaluated. Objective Data Vital Signs: Vital Signs Temp Pulse Resp BP Pulse Ox O2 Del Method 96.6 F L 68 18 151/78 H 95 Room Air 03/07/24 03:40 03/07/24 06:31 03/07/24 03:40 03/07/24 06:31 03/07/24 03:40 03/07/24 07:30 Oxygen Delivery Method Room Air Weight: 266 lb 1.567 oz Body Mass Index (BMI) 35.1 Intake & Output: Intake and Output for Last 24 Hours 03/05/24 03/06/24 03/07/24 23:59 23:59 23:59 Intake Total 360 / 580 1220 / 1220 Balance 360 / 580 1220 / 1220 Lab / Micro Data 03/07/24 06:18 03/07/24 06:18 Labs: Laboratory Results - last 24 hr 03/06/24 13:08: WBC 5.8, RBC 4.55 L, Hgb 14.5, Hct 44.8, MCV 98.5 H, MCH 31.9, MCHC 32.4, RDW Std Deviation 44.9 H, RDW Coeff of Uriah 12.4, Plt Count 218, MPV 9.4, Immature Gran % (Auto) 0.200, Neut % (Auto) 61.1, Lymph % (Auto) 24.8, [place] % (Auto) 9.7, Eos % (Auto) 3.3, Baso % (Auto) 0.9, Absolute Neuts (auto) 3.5, Absolute Lymphs (auto) 1.43, Nucleated RBC % 0, Sodium 137, Potassium 4.0, Chloride 107, Carbon Dioxide 26.0, Anion Gap 4 L, BUN 12, Creatinine 0.84, Estim Creat Clear Calc 122.25, Est GFR (MDRD) Af Amer 118, Est GFR (MDRD) Non-Af 97, BUN/Creatinine Ratio 14.2, Glucose 111 H, Calcium 8.9, Troponin I High Sens 138 H* 03/06/24 15:49: Magnesium 2.2, Total Bilirubin 0.90, Direct Bilirubin 0.23, AST 24, ALT 26, Alkaline Phosphatase 71, Troponin I High Sens 136 H*, Total Protein 7.6, Albumin 3.5, Globulin 4.1 03/06/24 19:28: Troponin I High Sens 128 H* 03/07/24 06:18: WBC 5.1, RBC 4.27 L, Hgb 13.9, Hct 42.4, MCV 99.3 H, MCH 32.6 H, MCHC 32.8, RDW Std Deviation 44.0 H, RDW Coeff of Uriah 12.3, Plt Count 202, MPV 9.3, Immature Gran % (Auto) 0.400, Neut % (Auto) 63.5, Lymph % (Auto) 21.6, [place] % (Auto) 9.7, Eos % (Auto) 4.2, Baso % (Auto) 0.6, Absolute Neuts (auto) 3.2, Absolute Lymphs (auto) 1.09, Nucleated RBC % 0, Sodium 138, Potassium 4.4, Chloride 108 H, Carbon Dioxide 25.0, Anion Gap 5, BUN 12, Creatinine 0.81, Estim Creat Clear Calc 127.04, Est GFR (MDRD) Af Amer 123, Est GFR (MDRD) Non-Af 102, BUN/Creatinine Ratio 14.8, Glucose 119 H, Calcium 8.5 Rhythm Strip Rhythm Strip: Sinus Rhythm Rate: 78 Ectopy: None Cardiology Labs/Tests 03/06/24 13:08: WBC 5.8, RBC 4.55 L, Hgb 14.5, Hct 44.8, MCV 98.5 H, MCH 31.9, MCHC 32.4, Plt Count 218, MPV 9.4, Immature Gran % (Auto) 0.200, Neut % (Auto) 61.1, Lymph % (Auto) 24.8, [place] % (Auto) 9.7, Eos % (Auto) 3.3, Baso % (Auto) 0.9, Absolute Neuts (auto) 3.5, Nucleated RBC % 0, Sodium 137, Potassium 4.0, Chloride 107, Carbon Dioxide 26.0, Anion Gap 4 L, BUN 12, Creatinine 0.84, Est GFR (MDRD) Af Amer 118, Est GFR (MDRD) Non-Af 97, BUN/Creatinine Ratio 14.2, Glucose 111 H, Calcium 8.9 03/06/24 15:49: Magnesium 2.2, Total Bilirubin 0.90, Direct Bilirubin 0.23 03/07/24 06:18: WBC 5.1, RBC 4.27 L, Hgb 13.9, Hct 42.4, MCV 99.3 H, MCH 32.6 H, MCHC 32.8, Plt Count 202, MPV 9.3, Immature Gran % (Auto) 0.400, Neut % (Auto) 63.5, Lymph % (Auto) 21.6, [place] % (Auto) 9.7, Eos % (Auto) 4.2, Baso % (Auto) 0.6, Absolute Neuts (auto) 3.2, Nucleated RBC % 0, Sodium 138, Potassium 4.4, Chloride 108 H, Carbon Dioxide 25.0, Anion Gap 5, BUN 12, Creatinine 0.81, Est GFR (MDRD) Af Amer 123, Est GFR (MDRD) Non-Af 102, BUN/Creatinine Ratio 14.8, Glucose 119 H, Calcium 8.5 Rhythm: EKG: ECHO: Stress Test: Cardiac Cath: PCI: CT Surgery: Holter monitor: EPS: PPM: CXR: Chest CT Scan: Radiography Diagnostic Testing: Radiology Impression Chest X-Ray 03/06/24 13:35 IMPRESSION: Findings suggest some mild scarring at the lung bases. Electronically Signed: Mathew Vasquez MD at 14:06 EDT , Abdomen/Pelvis CT 03/06/24 22:30 IMPRESSION: 1. Sigmoid colon containing large left inguinal hernia extending into the scrotum without evidence of incarceration or strangulation. 2. Predominantly posterior dependent airspace disease bilaterally is likely atelectasis rather than pneumonia. Small pulmonary cysts/blebs are identified. 3. Colonic diverticulosis without evidence of acute diverticulitis. Electronically Signed: Nadeem Mckeon DO at 23:40 EDT , Assessment & Plan Assessment/Plan (1) NSTEMI, initial episode of care: PLAN: He does have evidence of abnormal cardiac enzymes. However the pattern does not suggest acute coronary syndrome. Cardiac catheterization today demonstrated normal coronary arteries. Patient can be discharged for outpatient follow-up. (2) Exertional dyspnea: PLAN: He does have evidence of exertional dyspnea. We would obtain an echocardiogram to assess his ventricular function. I will also like to obtain a natruretic peptide level. Further recommendations will depend on the results of the above results.
--- NOTE | 2024-03-07 08:51 | CL.D_ITS ---
Patient Name: MIRI ROMERO Study Date: 03/07/2024 Performing: Pantera Sims MD Ht: 73 inches 185.42 cm : 1960 Wt: 266.1 lbs 120.7 kg Age: 63 Gender: male BSA: 2.43 PROCEDURE(S) PERFORMED [id number])LHC/COR/LV CLINICAL PROFILE AND INDICATIONS Indications: Suspected CAD Heart Failure: None Stress/Imaging Stress/Image Study Performed: No CAD Presentations: Stable angina. CONCLUSIONS Normal coronary arteries Normal LV size, wall motion,and systolic function RECOMMENDATIONS Medical therapy DESCRIPTION OF PROCEDURE The patient arrived to the procedure lab. The risks and benefits of the procedure as well as a full description of our services here and current unavailability of surgical backup were fully explained to the patient and/or their significant other prior to the catheterization. The Timeout was completed, verifying the correct patient and procedure. The patient's procedural site was prepped and draped in the usual fashion. Local anesthetic was given subcutaneously to right radial region with Lidocaine 2%. Using a modified Seldinger technique, arterial access was obtained via the right radial artery, a 6Fr sheath was inserted. Left Coronary Artery selective angiography was performed in multiple views using a 5 Fr. 4.0 Oriental catheter. Right Coronary Artery selective angiography was then performed in multiple views using a 5 Fr. 4.0 Oriental catheter. Left Ventriculography was performed in BAUMANN projection using a 5 Fr. Pigtail catheter. LV to AO pullback pressures were then recorded.The arterial sheath was pulled and a TR Band was applied for hemostasis 17 ml of air CORONARY ANGIOGRAPHY DOMINANCE: Right Dominant LEFT HEART ASSESSMENT Left Ventricular Ejection Fraction: by LV Gram 55 % Normal Left Ventricular systolic function LEFT MAIN: Angiographically normal LEFT ANTERIOR DESCENDING ARTERY: Angiographically normal CIRCUMFLEX ARTERY: Angiographically normal RIGHT CORONARY ARTERY: Angiographically normal COMPLICATIONS No Complications PROCEDURE MEDICATIONS Versed 1 mg IV Fentanyl 50 mcg IV Versed 1 mg IV Oxygen: 2 L/min via nasal cannula Heparin given IA 03/07/2024 08:24:51 Verapamil 2.5mg, Ntg 100mcgs, 3000 units of Heparin given IA 03/07/2024 08:24:51 SUMMARY OF HEMODYNAMIC DATA Time AIR REST ECG 08:09:01 AO 145/87 (114) SA 08:34:07 AO 143/86 (112) 08:35:24 LV 147/21, 34 08:39:55 LV 177/24, 33 08:40:03 LV 154/25, 36 08:40:40 LV 146/26, 28 08:40:48 LVp 143/23, 29 08:40:51 AOp 0/0 (45) 08:40:58 Signed By Pantera Sims MD On 03/07/2024 08:49:58 Pantera Sims MD
[2024-03-07] MEDS: Lisinopril 5 MG Tablet PO (09:36)
--- NOTE | 2024-03-07 10:00 | CASEMGMT ---
RN CM Face to Face with patient for initial transition planning/care coordination assessment. RN CM introduced self and role at [facility]. Patient lying in bed, alert and oriented, family at bedside. Patient willing to participate in assessment and is able to answer all questions appropriately. Care providers, pharmacy, and demographics verified. PCP: none, PCP list provided to patient Specialists: none Preferred Pharmacy: [facility]; [facility] at discharge Insurance: none Prescription Benefit: none Living Will/HPOA: none LNOK: sons, daughter Living Arrangements: Patient lives alone in a single story home with no steps to enter. Patient states he is independent at home. Transportation: self, family DME/HHC: Patient denies DME in the home. Patient denies previous HHC or SNF Patient wishes to discharge home, denies need for home health at this time. Patient states he has no further needs or concerns at this time. CM to follow for discharge planning needs that may arise. Disposition Plan: Patient to discharge home with family support and follow-up plans in place. Layne THOMPSON, RN, CM
--- NOTE | 2024-03-07 11:25 | DCINST_ITS ---
Discharge Instructions Diet Discharge Diet: Low fat / Low cholesterol Activity Discharge Activity: Return to Normal Activity Dressing / Incision Call your doctor if you observe: Fever of 101 or Higher, Shortness of breath, Dizziness, Fainting spells, Swelling in the ankles, Chest pain and Increased palpitations (irregular heartbeat) Follow Up Care Test Results: Test results from this visit will be discussed in further detail at your follow- up appointment, if applicable. Discharge Plan Admission Admit Date/Time: 03/06/24 14:42 Attending Provider: Stewart Toledo Primary Care Provider: Layne Levy Primary Consulting Providers: Pantera Sims; Rudolph Villarreal; Pete Rojas Instructions Additional Instructions / Restrictions: Follow-up with your PCP in 3 to 5 days to obtain referral for pulmonary function testing to evaluate you for COPD versus asthma. Also will need to monitor your kidney function given the new medications you are being started on to control your blood pressure Discharge Orders/Prescriptions Prescriptions: New lisinopril 5 mg Tablet 5 mg PO DAILY 30 Days Qty: 30 2RF metoprolol succinate 25 mg Tablet Extended Release 24 Hr 25 mg PO DAILY 30 Days Qty: 30 2RF albuterol sulfate 90 mcg/actuation HFA aerosol inhaler 2 puff inhalation Q6H PRN (Reason: shortness of breath or wheezing) Qty: 6.7 2RF Continued fluticasone propionate [Allergy Relief (fluticasone)] 50 mcg/actuation spray,suspension 1 spray intranasal DAILY PRN (Reason: allergy symptoms) Rx Instructions: administer into each nostril cetirizine [24Hour Allergy] 10 mg tablet 10 mg PO DAILY PRN (Reason: allergy symptoms) Referrals / Follow Up: Care Physician,No Primary [Primary Care Provider] - Ryan Verduzco MD [Med Staff - Active Staff] - Within 1 Month (For inguinal hernia eval) Disposition Disposition (needs filled in before D/C Order can be placed): Home, Self Care
[2024-03-07 12:53] LABS: Hemoglobin A1c 5.4 % (3.8-5.6)
--- NOTE | 2024-03-07 13:26 | EX.PCM.CON.S ---
Assessment & Plan Assessment/Plan (1) Left inguinal hernia: PLAN: Patient is a 63-year-old male who presents for exertional dyspnea but surgery was asked to evaluate patient given concerns for patient's tendency to not follow-up with medical care related to a left inguinal hernia. This has been chronically present for the last 5 to 6 years. Patient overall appears asymptomatic but has noticed some growth. The hernia is so large that it appears to contain the majority the patient's sigmoid colon. It is difficult to determine whether or not this is partially chronically incarcerated or if patient's initial discomfort could be overcome that it would be fully reducible. Still, given patient's denial of pain at rest or altered bowel habits I recommend outpatient follow-up with our office. At that visit I would plan to describe management of inguinal hernias in greater depth and probably plan for tertiary referral given the large size of the hernia. Will await reevaluation. Patient is happy to have this conversation and start taking steps towards fixing this issue. Please ensure that patient has our contact upon hospital discharge. Ryan Verduzco MD General Surgery Endocrine Surgery Pager: [facility] [address] [place] [address], [address] [place] [address] Office: [phone] HPI Consult Data Date of Consult: 03/07/24 HPI Narrative Reason for Consultation: Large left inguinal hernia HPI Narrative: MIRI ROMERO, is a 63 M who presented to [facility] on 01/04/2023 due to progressive exertional dyspnea. Noted to have mildly elevated troponins and was evaluated by cardiology. Was ultimately taken to the [facility] today with cardiology for further investigation and reportedly had a clean cath study. Surgery was asked to evaluate patient given physical exam evidence of a moderately large left scrotal mass that was confirmed on CT to represent a large left inguinal hernia. Patient admits that he has not seen a doctor since the 1970s. He reports that the hernia in question has been present for approximately the last 5 to 6 years. He believes it started with lifting heavy sheet-metal. He denies pain but reports ongoing growth. He denies any issues to compromise bowel function and states that he remains regular?attributing this to a healthy diet. He is a former smoker but quit 4 months ago. He denies any history of recurrent cutaneous infections. [facility] Medical History no medical history Home Medications ?Medication ?Instructions ?Recorded ?Last Taken ?Type cetirizine 10 mg tablet (24Hour 10 mg PO DAILY PRN allergy symptoms 03/06/24 03/05/24 History Allergy) fluticasone propionate 50 1 spray intranasal DAILY PRN 03/06/24 03/05/24 History mcg/actuation nasal allergy symptoms spray,suspension (Allergy Relief (fluticasone)) albuterol sulfate 90 mcg/actuation 2 puff inhalation Q6H PRN 03/07/24 Unknown Rx aerosol inhaler shortness of breath or wheezing #6.7 grams lisinopril 5 mg tablet 5 mg PO DAILY 30 days #30 tabs 03/07/24 Unknown Rx metoprolol succinate 25 mg 25 mg PO DAILY 30 days #30 tabs 03/07/24 Unknown Rx tablet,extended release 24 hr Allergy/AdvReac Type Severity Reaction Status Date / Time No Known Allergies Allergy Verified 03/06/24 12:57 Surgical History no surgical history Social History Smoking Status: Former smoker Physical Exam Const alert, oriented x3, no apparent distress and well nourished General Appearance: cooperative Resp normal respiratory effort GI GI Narrative: Obese, no scars, soft, nontender Narrative: Very large left inguinal hernia containing colon. The hernia contents are soft but I am only able to partially reduce patient's hernia contents due to patient's discomfort with the procedure. Lab / Micro Data 03/07/24 06:18 03/07/24 06:18 Labs: Laboratory Results - last 24 hr 03/06/24 13:08: WBC 5.8, RBC 4.55 L, Hgb 14.5, Hct 44.8, MCV 98.5 H, MCH 31.9, MCHC 32.4, RDW Std Deviation 44.9 H, RDW Coeff of Uriah 12.4, Plt Count 218, MPV 9.4, Immature Gran % (Auto) 0.200, Neut % (Auto) 61.1, Lymph % (Auto) 24.8, Stone % (Auto) 9.7, Eos % (Auto) 3.3, Baso % (Auto) 0.9, Absolute Neuts (auto) 3.5, Absolute Lymphs (auto) 1.43, Nucleated RBC % 0, Sodium 137, Potassium 4.0, Chloride 107, Carbon Dioxide 26.0, Anion Gap 4 L, BUN 12, Creatinine 0.84, Estim Creat Clear Calc 122.25, Est GFR (MDRD) Af Amer 118, Est GFR (MDRD) Non-Af 97, BUN/Creatinine Ratio 14.2, Glucose 111 H, Calcium 8.9, Troponin I High Sens 138 H* 03/06/24 15:49: Magnesium 2.2, Total Bilirubin 0.90, Direct Bilirubin 0.23, AST 24, ALT 26, Alkaline Phosphatase 71, Troponin I High Sens 136 H*, Total Protein 7.6, Albumin 3.5, Globulin 4.1 03/06/24 19:28: Troponin I High Sens 128 H* 03/07/24 06:18: WBC 5.1, RBC 4.27 L, Hgb 13.9, Hct 42.4, MCV 99.3 H, MCH 32.6 H, MCHC 32.8, RDW Std Deviation 44.0 H, RDW Coeff of Uriah 12.3, Plt Count 202, MPV 9.3, Immature Gran % (Auto) 0.400, Neut % (Auto) 63.5, Lymph % (Auto) 21.6, Stone % (Auto) 9.7, Eos % (Auto) 4.2, Baso % (Auto) 0.6, Absolute Neuts (auto) 3.2, Absolute Lymphs (auto) 1.09, Nucleated RBC % 0, Sodium 138, Potassium 4.4, Chloride 108 H, Carbon Dioxide 25.0, Anion Gap 5, BUN 12, Creatinine 0.81, Estim Creat Clear Calc 127.04, Est GFR (MDRD) Af Amer 123, Est GFR (MDRD) Non-Af 102, BUN/Creatinine Ratio 14.8, Glucose 119 H, Hemoglobin A1c 5.4, Calcium 8.5 Rhythm Strip Rhythm Strip: Sinus Rhythm Rate: 78 Ectopy: None Imaging Radiology Impression Chest X-Ray 03/06/24 13:35 IMPRESSION: Findings suggest some mild scarring at the lung bases. Electronically Signed: Mathew Vasquez MD at 14:06 EDT , Abdomen/Pelvis CT 03/06/24 22:30 IMPRESSION: 1. Sigmoid colon containing large left inguinal hernia extending into the scrotum without evidence of incarceration or strangulation. 2. Predominantly posterior dependent airspace disease bilaterally is likely atelectasis rather than pneumonia. Small pulmonary cysts/blebs are identified. 3. Colonic diverticulosis without evidence of acute diverticulitis. Electronically Signed: Nadeem Mckeon DO at 23:40 EDT , Charges/Coding Visit Charges Inpatient E&M: 81360 Init Hosp L2
--- NOTE | 2024-03-07 16:13 | DS.PCM_ITS ---
Providers Date of Admission: 03/06/24 Primary Care Physician: Layne Primary Care Phys Consultations 03/06/24 15:20 Consult: Cardiology Routine Consulting Provider: Pantera Sims Reason for Consult: Unstable angina/NSTEMI EMERGENT Consult: No MD Notified: Yes Date Notified: 03/06/24 Time Notified: 15:20 Method of Notification: Verbal 03/07/24 00:09 Consult: General Surgery Routine Consulting Provider: Pete Rojas Reason for Consult: large inguinal hernia EMERGENT Consult: No Notified: Yes Date Notified: 03/07/24 Time Notified: 06:57 Method of Notification: Text Reason For Visit: EXERTIONAL DYSPNEA Diagnosis Discharge Diagnosis (1) NSTEMI, initial episode of care: Status: Acute Code(s): I21.4 - Non-ST elevation (NSTEMI) myocardial infarction (2) Exertional dyspnea: Status: Acute Code(s): R06.09 - Other forms of dyspnea Medications at Discharge Home Medications cetirizine 10 mg tablet (24Hour Allergy) 10 mg PO DAILY PRN allergy symptoms 03/06/24 fluticasone propionate 50 mcg/actuation nasal spray,suspension (Allergy Relief (fluticasone)) 1 spray intranasal DAILY PRN allergy symptoms 03/06/24 albuterol sulfate 90 mcg/actuation aerosol inhaler 2 puff inhalation Q6H PRN shortness of breath or wheezing #6.7 grams 03/07/24 lisinopril 5 mg tablet 5 mg PO DAILY 30 days #30 tabs 03/07/24 metoprolol succinate 25 mg tablet,extended release 24 hr 25 mg PO DAILY 30 days #30 tabs 03/07/24 Hospital Course Operations None Procedures 2-D Echocardiogram and Cardiac catheterization Summary of Care Provided Minutes Spent on Discharge: 37 Hospital Course: Per HPI: MIRI ROMERO, is a 63 M who has not seen any doctor for 30 years came to ER for exertional dyspnea which she noticed about 10 days ago. Patient stated that he was carrying car battery into the car shop and he felt very short of breath. Normally does not feel short of breath on walking on playground but while carrying weight he gets easily winded and out of breath. This has been going for about 2 months. Patient also has had sometimes he feel mild chest pressure about 1-3/10 intensity left-sided, localized but is not concerned it is not related with the activity. He also has chronic throat tightness which is chronic and intermittent. On home medications patient is on cetirizine and fluticasone nasal spray as needed for allergy symptoms. Patient does not know any his past medical history has not seen doctor for many years. His blood pressure was elevated in ED 176/84, heart rate 93/min. No hypoxia or tachypnea. Patient has history of smoking for about 18 years which she quit 4 months ago. He was smoking 1 pack in 1 week. Drinks alcohol regularly about 3-4 beers every day. Denies substance use. Family history: His father has history of coronary artery disease and at the age of 53 because of heart attack. He said he also had metallic valve probably prosthetic mechanical valve. First troponin elevated. Twelve-lead EKG, chest x-ray and labs reviewed and discussed assessment and plan. Hospital Course: 1. Non-STEMI/essential HTN?63-year-old male presented to the hospital with increasing shortness of breath and exertional dyspnea. Found to have elevated troponins so cardiology was consulted who recommended heart cath. The heart cath today did not show any coronary artery disease, and his troponins trended downwards. He was found to have a slight elevation into his blood pressure and he does not follow with any PCP. Will start him on a beta-odilia as well as lisinopril and have him follow-up as an outpatient with his primary care provider. At that point he will also need a lipid panel to evaluate the need for possible statin however my fear with starting him on too many medications given the fact that he normally does not see a doctor would be noncompliant. I discussed with him the plan for discharge today and he and his family expressed understanding of the risk benefits of going home and they would like to go home today. Of note an echo was obtained on the day of discharge with an EF of 55% and no diastolic dysfunction. 2. Large left inguinal hernia?will have him follow-up with general surgery as an outpatient for repair, there does appear to be sigmoid colon and the hernia sac on CT scan. 3. Family was requesting workup for asthma/COPD I discussed with them the need to follow-up as an outpatient for outpatient pulmonary function testing. In the meantime he does have a slight wheeze on exam so we will provide with albuterol as needed. Physical Exam Narrative General: Alert, Oriented x3, Cooperative, No apparent distress HEENT: Atraumatic, PERRLA, EOMI, Normocephalic Oral: Moist Mucosa, poor dentition Neck: Supple, No JVD Lungs: Diminished, Normal air movement, No rhonchi, slight wheeze, No rales Cardiovascular: Regular rate, Regular Rhythm, Normal S1, Normal S2, No murmurs Abdomen: Soft, Non Tender, Non-Distended, No Hepato-splenomegaly, left large inguinal hernia Extremities: No edema, Capillary Refill Less than 3 Seconds Skin: No rashes, No breakdown Musculoskeletal: No Tenderness to Palpation of Joints or Extremities Neurological: No focal neurological deficits, Motor Exam 5/5 strength throughout, Sensory exam intact to light touch and pain Psych/Mental Status: Normal Affect, Appropriate Weight / BMI Weight Weight: 266 lb 1.567 oz Body Mass Index (BMI) 35.1 ABG / Lab / Microbiology Data 03/07/24 06:18 03/07/24 06:18 Laboratory: Laboratory Results - last 24 hr 03/06/24 15:49: Magnesium 2.2, Total Bilirubin 0.90, Direct Bilirubin 0.23, AST 24, ALT 26, Alkaline Phosphatase 71, Troponin I High Sens 136 H*, Total Protein 7.6, Albumin 3.5, Globulin 4.1 03/06/24 19:28: Troponin I High Sens 128 H* 03/07/24 06:18: WBC 5.1, RBC 4.27 L, Hgb 13.9, Hct 42.4, MCV 99.3 H, MCH 32.6 H, MCHC 32.8, RDW Std Deviation 44.0 H, RDW Coeff of Uriah 12.3, Plt Count 202, MPV 9.3, Immature Gran % (Auto) 0.400, Neut % (Auto) 63.5, Lymph % (Auto) 21.6, [place] % (Auto) 9.7, Eos % (Auto) 4.2, Baso % (Auto) 0.6, Absolute Neuts (auto) 3.2, Absolute Lymphs (auto) 1.09, Nucleated RBC % 0, Sodium 138, Potassium 4.4, C hloride 108 H, Carbon Dioxide 25.0, Anion Gap 5, BUN 12, Creatinine 0.81, Estim Creat Clear Calc 127.04, Est GFR (MDRD) Af Amer 123, Est GFR (MDRD) Non-Af 102, BUN/Creatinine Ratio 14.8, Glucose 119 H, Hemoglobin A1c 5.4, Calcium 8.5 Radiography Diagnostic Testing: Radiology Impression Echocardiogram 03/06/24 15:18 Interpretation Summary The estimated ejection fraction is 55 %. No evidence for diastolic dysfunction. Trivial mitral valve insufficiency. Trivial aortic valve insufficiency. Ordering Physician: Rudolph Villarreal Referring Physician: N/A Performed By: Lubna Brice RDCS and Student Abdomen/Pelvis CT 03/06/24 22:30 IMPRESSION: 1. Sigmoid colon containing large left inguinal hernia extending into the scrotum without evidence of incarceration or strangulation. 2. Predominantly posterior dependent airspace disease bilaterally is likely atelectasis rather than pneumonia. Small pulmonary cysts/blebs are identified. 3. Colonic diverticulosis without evidence of acute diverticulitis. Electronically Signed: Nadeem Mckeon DO at 23:40 EDT , D/C Instructions Discharge Diet: Low fat / Low cholesterol Call your doctor if you observe: Fever of 101 or Higher, Shortness of breath, Dizziness, Fainting spells, Swelling in the ankles, Chest pain and Increased palpitations (irregular heartbeat) Meaningful Use Info Meaningful Use Meaningful Use Diagnoses (Choose all that apply): None applicable Ischemic Stroke Statin Dosing Therapy Reference: STATIN DOSE THERAPY REFERENCE: * Patients > 75 years receive moderate or high dose statin therapy. * Patients 75 years or YOUNGER should receive HIGH intensity statin dose unless contraindicated. You will be required to document reason for non-treatment if statin daily dose does not meet guidelines. HIGH DOSE STATIN THERAPY DAILY Atorvastatin > than or = to 40 mg Rosuvastatin > than or = to 20 mg Amlodipine + Atorvastatin > than or = to 2.5/40 mg Ezetimibe + Simvastatin 10/80 mg Simvastatin 80mg Discharge Plan Admission Admit Date/Time: 03/06/24 14:42 Attending Provider: Stewart Toledo Primary Care Provider: Care Physician,No Primary Consulting Providers: Pantera Sims; Rudolph Villarreal; Pete Rojas Instructions Additional Instructions / Restrictions: Follow-up with your PCP in 3 to 5 days to obtain referral for pulmonary function testing to evaluate you for COPD versus asthma. Also will need to monitor your kidney function given the new medications you are being started on to control your blood pressure Discharge Orders/Prescriptions Prescriptions: New lisinopril 5 mg Tablet 5 mg PO DAILY 30 Days Qty: 30 2RF metoprolol succinate 25 mg Tablet Extended Release 24 Hr 25 mg PO DAILY 30 Days Qty: 30 2RF albuterol sulfate 90 mcg/actuation HFA aerosol inhaler 2 puff inhalation Q6H PRN (Reason: shortness of breath or wheezing) Qty: 6.7 2RF Continued fluticasone propionate [Allergy Relief (fluticasone)] 50 mcg/actuation spray,suspension 1 spray intranasal DAILY PRN (Reason: allergy symptoms) Rx Instructions: administer into each nostril cetirizine [24Hour Allergy] 10 mg tablet 10 mg PO DAILY PRN (Reason: allergy symptoms) Referrals / Follow Up: Ryan Verduzco MD [Med Staff - Active Staff] - Within 1 Month (For inguinal hernia eval) Care Physician,No Primary [Primary Care Provider] - Disposition Disposition (needs filled in before D/C Order can be placed): Home, Self Care Charges/Coding Visit Charges Inpatient E&M: 82509 Disch Hosp >30min
== END 2024-03-07 16:36 | disposition home or self-care (01) | DRG 287 ==
LOC: ED 14:45 → PCU 15:27
PROVIDERS: Admitting Provider Internal Medicine; Emergency Provider Emergency Medicine; Visit Provider Family Medicine
DX: I20.89 Other forms of angina pectoris (principal); E66.01 Morbid (severe) obesity due to excess calories; I10 Essential (primary) hypertension; K40.90 Unilateral inguinal hernia, without obstruction or gangrene, not specified as recurrent; Z68.35 Body mass index [BMI] 35.0-35.9, adult; R73.03 Prediabetes; R06.2 Wheezing; Z87.891 Personal history of nicotine dependence; Z82.49 Family history of ischemic heart disease and other diseases of the circulatory system
CPT/HCPCS: 36415; 71046; 74176; 80048; 80076; 83036; 83735; 84484; 85025; 93005; 93306; 93458; 94668; 99152; 99153; 99252; 99285; 99406; J7030; Q9967; A4216; C1769; C1894; G0463